=== PATIENT | male | born 1980 | race Caucasian/White ===

== ENCOUNTER 2021-02-01 13:33 | Emergency (ER) | payer MEDICAID ==
[~2021-02-01] VITALS: Ht 170.2 cm; Wt 136.1 kg
[2021-02-01 14:31] VITALS: BP_SYST 202
[2021-02-01 15:52] LABS: BASOPHILS # (AUTO) 0.2 K/uL (0.0-0.2); BASOPHILS % (AUTO) 1.9 % (0.0-2.0); EOSINOPHILS # (AUTO) 0.1 K/uL (0.0-0.4); EOSINOPHILS % (AUTO) 1.1 % (0.0-4.0); HEMOGLOBIN 16.5 g/dL (14.0-18.0); LYMPHOCYTES # (AUTO) 1.4 K/uL (1.0-5.5); LYMPHOCYTES % (AUTO) 17.4 % (20.5-51.5); MEAN CORPUSCULAR HEMOGLOBIN 31 pg (27-31); MEAN CORPUSCULAR HGB CONC 34 % (32-36); MEAN CORPUSCULAR VOLUME 89 fL (79.0-98.0); MONOCYTES # (AUTO) 0.8 K/uL (0.0-1.0); MONOCYTES % (AUTO) 9.5 % (1.7-9.3); NEUTROPHILS # (AUTO) 5.8 K/uL (1.8-7.7); NEUTROPHILS % (AUTO) 70.1 % (40.0-70.0); PLATELET COUNT (AUTO) 269 K/uL (130-430); RED BLOOD CELL COUNT(AUTO) 5.37 MIL/uL (4.2-6.2); RED CELL DISTRIBUTION WIDTH 13.5 % (9.0-15.0); WHITE BLOOD COUNT (AUTO) 8.3 K/uL (4.8-10.8)
[2021-02-01 16:01] LABS: CALCIUM 9.1 mg/dL (8.4-11.0); CREATININE 1.52 mg/dL (0.55-1.30)
[2021-02-01 16:04] LABS: POTASSIUM 2.9 mmol/L (3.5-5.1)
[2021-02-01 16:06] LABS: ALBUMIN 3.4 g/dL (3.4-4.8); TOTAL BILIRUBIN 0.3 mg/dL (0.0-1.0)
[2021-02-01] MEDS ORDERED: POTASSIUM CHLORIDE 10 MEQ TAB.PRT.SR PO ONE (16:15)
[2021-02-01] MEDS ORDERED: KCL 20 mEq in 100 mL (PREMIX) 100 ML IV ONE (16:15)
[2021-02-01] MEDS ORDERED: LOSA1TAB37 PO (19:29)
[2021-02-01] MEDS ORDERED: FURO-150 PO (19:29)
[2021-02-01] MEDS ORDERED: POTA20TA83 PO (19:29)
[2021-02-01 19:45] VITALS: BP_SYST 158
== END 2021-02-01 19:45 | disposition admitted as inpatient to this hospital (09) ==
LOC: SED 13:33
DX: R60.0 Localized edema (principal)
CPT/HCPCS: 36415; 71045; 80053; 82962; 83690; 83880; 84484; 85025; 93005; 93970; 96365; 96366; 99285; J3480

== ENCOUNTER 2021-06-07 16:10 | Emergency (ER) | payer MEDICAID ==
[~2021-06-07] VITALS: Ht 170.2 cm; Wt 134.7 kg
[~2021-06-07 16:10] MED LIST: FURO-150 PO; LOSA1TAB37 PO; POTA20TA83 PO
[2021-06-07 16:21] VITALS: BP_SYST 191
[2021-06-07] MEDS ORDERED: cloNIDine HCL 0.1 MG TABLET PO ONE (16:45)
--- NOTE | 2021-06-07 18:10 | NUR ---
Patient to ER bed 2 to gown for evaluation. Side rails up.
--- NOTE | 2021-06-07 18:12 | NUR ---
Pt came into ER with complaint of hypertension Xtoday. Pt AAOX4 speaking full sentences. Attached to monitor no distress noted. Pt BP 196/109.
--- NOTE | 2021-06-07 18:20 | NUR ---
# 20 gauge angiocath placed to LWrist. Use of asceptic technique. Opsite placed over site. Blood return noted. Blood for lab drawn from site. Flushed with 10 cc of normal saline. No evidence of infiltration noted. Patient tolerated well.
--- NOTE | 2021-06-07 18:21 | NUR ---
Blood collected and sent to lab.
[2021-06-07 18:30] LABS: BASOPHILS % (AUTO) 0.4 % (0.0-2.0); EOSINOPHILS # (AUTO) 0.1 K/uL (0.0-0.4); EOSINOPHILS % (AUTO) 1.4 % (0.0-4.0); HEMATOCRIT 48.5 % (36-54); HEMOGLOBIN 16.5 g/dL (14.0-18.0); LYMPHOCYTES # (AUTO) 2.3 K/uL (1.0-5.5); LYMPHOCYTES % (AUTO) 22.9 % (20.5-51.5); MEAN CORPUSCULAR HEMOGLOBIN 30 pg (27-31); MEAN CORPUSCULAR HGB CONC 34 % (32-36); MEAN CORPUSCULAR VOLUME 90 fL (79.0-98.0); MONOCYTES # (AUTO) 0.8 K/uL (0.0-1.0); MONOCYTES % (AUTO) 8.3 % (1.7-9.3); NEUTROPHILS # (AUTO) 6.7 K/uL (1.8-7.7); PLATELET COUNT (AUTO) 274 K/uL (130-430); RED BLOOD CELL COUNT(AUTO) 5.42 MIL/uL (4.2-6.2); RED CELL DISTRIBUTION WIDTH 13.6 % (9.0-15.0)
[2021-06-07 18:43] LABS: CALCIUM 8.7 mg/dL (8.4-11.0); CREATININE 1.19 mg/dL (0.55-1.30); POTASSIUM 3.2 mmol/L (3.5-5.1)
[2021-06-07 18:47] LABS: INR 0.9 (0.80-1.20); PROTHROMBIN TIME 9.3 SECS (9.5-12.5)
[2021-06-07 18:51] LABS: ALBUMIN 3.5 g/dL (3.4-4.8); TOTAL BILIRUBIN 0.2 mg/dL (0.0-1.0)
--- NOTE | 2021-06-07 19:10 | NUR ---
BP 169/110- Dr. Lujan notified.
[2021-06-07] MEDS ORDERED: FUROSEMIDE 40 MG/4 ML VIAL IVP ONE (19:15)
[2021-06-07] MEDS ORDERED: NITROGLYCERIN 0.4 MG TAB.SUBL SL ONE (19:15)
[2021-06-07] MEDS ORDERED: LOSA1TAB37 PO (19:17)
--- NOTE | 2021-06-07 19:26 | NUR ---
Care endorsed to Yue EAGLE
--- NOTE | 2021-06-07 19:42 | NUR ---
BP 164/90- Notified.
[2021-06-07 20:22] VITALS: BP_SYST 164
--- NOTE | 2021-06-07 20:22 | NUR ---
Patient given written and verbal discharge instructions and verbalizes understanding. ER MD discussed with patient the results and treatment provided. Patient in stable condition. ID arm band removed. IV catheter removed intact and dressing applied, no active bleeding. Rx of Losatan and Clonidine given. Patient educated on pain management and to follow up with PMD. Pain Scale 0/10. Opportunity for questions provided and answered. Medication side effect fact sheet provided.
== END 2021-06-07 20:21 | disposition home or self-care (01) ==
LOC: SED 16:10
DX: I16.0 Hypertensive urgency (principal); E11.9 Type 2 diabetes mellitus without complications; Z79.899 Other long term (current) drug therapy
CPT/HCPCS: 36415; 71045; 80053; 83880; 84484; 85025; 85610; 85730; 93005; 96374; 99285; J1940

== ENCOUNTER 2022-02-03 11:18 | Emergency (ER) | payer MEDICAID, SELFPAY ==
[~2022-02-03] VITALS: Ht 175.3 cm; Wt 127.0 kg
[~2022-02-03 11:18] MED LIST changes: +POTA-197 PO; -POTA20TA83 PO
[2022-02-03 11:20] VITALS: BP_SYST 193
--- NOTE | 2022-02-03 11:25 | NUR ---
Patient to ER bed 1 to gown for evaluation. Side rails up. Report given to JOSE MARTIN EAGLE.
--- NOTE | 2022-02-03 11:30 | NUR ---
PT BIB SELF POV FOR LEFT UPPER BACK PAIN X [address] MCKEE AT BEDSIDE
--- NOTE | 2022-02-03 12:08 | NUR ---
BLOOD TO LAB
[2022-02-03 12:24] LABS: BASOPHILS # (AUTO) 0.1 K/uL (0.0-0.2); EOSINOPHILS # (AUTO) 0.1 K/uL (0.0-0.4); EOSINOPHILS % (AUTO) 0.9 % (0.0-4.0); HEMATOCRIT 46.6 % (36-54); HEMOGLOBIN 15.8 g/dL (14.0-18.0); LYMPHOCYTES # (AUTO) 1.7 K/uL (1.0-5.5); LYMPHOCYTES % (AUTO) 17.7 % (20.5-51.5); MEAN CORPUSCULAR HEMOGLOBIN 30 pg (27-31); MEAN CORPUSCULAR HGB CONC 34 % (32-36); MEAN CORPUSCULAR VOLUME 89 fL (79.0-98.0); MONOCYTES # (AUTO) 0.6 K/uL (0.0-1.0); MONOCYTES % (AUTO) 5.8 % (1.7-9.3); NEUTROPHILS # (AUTO) 7.1 K/uL (1.8-7.7); NEUTROPHILS % (AUTO) 74.6 % (40.0-70.0); PLATELET COUNT (AUTO) 270 K/uL (130-430); RED BLOOD CELL COUNT(AUTO) 5.25 MIL/uL (4.2-6.2); RED CELL DISTRIBUTION WIDTH 13.7 % (9.0-15.0); WHITE BLOOD COUNT (AUTO) 9.5 K/uL (4.8-10.8)
[2022-02-03 12:45] LABS: ANION GAP 10 (5-15); CALCIUM 9.1 mg/dL (8.4-11.0); CHLORIDE 99 mmol/L (98-107); CREATININE 0.95 mg/dL (0.55-1.30); GLUCOSE 254 mg/dL (70-99); POTASSIUM 3.3 mmol/L (3.5-5.1); SODIUM SERUM 135 mmol/L (136-145); UREA NITROGEN, BLOOD 18 mg/dL (8-21)
[2022-02-03] MEDS ORDERED: KETOROLAC TROMETHAMINE 60 MG/2 ML VIAL IM ONE (12:45)
[2022-02-03 12:46] LABS: GFR AFRICAN AMERICAN 113 mL/min (>90)
[2022-02-03 13:04] LABS: ALANINE AMINOTRANSFERASE 54 U/L (12-78); ALBUMIN 3.6 g/dL (3.4-4.8); ASPARTATE AMINOTRANSFERASE 27 U/L (10-37); TOTAL BILIRUBIN 0.6 mg/dL (0.0-1.0)
[2022-02-03] MEDS ORDERED: HYDR-3917 PO (13:24)
[2022-02-03] MEDS ORDERED: IBUP-1971 PO (13:24)
[2022-02-03] MEDS ORDERED: PSEU30TA36 PO (13:24)
[2022-02-03 13:29] VITALS: BP_SYST 165
--- NOTE | 2022-02-03 13:32 | NUR ---
Patient given written and verbal discharge instructions and verbalizes understanding. JANET ernandez MD discussed with patient the results and treatment provided. Patient in stable condition. ID arm band removed. Rx of hydrocodone,motrin, pesudophed given. Patient educated on pain management and to follow up with PMD. Pain Scale 2. Opportunity for questions provided and answered. Medication side effect fact sheet provided.
== END 2022-02-03 13:29 | disposition home or self-care (01) ==
LOC: SED 11:18
DX: J32.9 Chronic sinusitis, unspecified (principal); R09.1 Pleurisy; E11.9 Type 2 diabetes mellitus without complications; I10 Essential (primary) hypertension; Z20.822 Contact with and (suspected) exposure to COVID-19
CPT/HCPCS: 36415; 71045; 80053; 84484; 85025; 85379; 87426; 96372; 99284; J1885